=== PATIENT | female | born 1980 | race Hispanic/Latino ===

== ENCOUNTER → 2019-01-09 | Outpatient (REF) | payer OTHER | END | disposition home or self-care (01) | DRG 696 | LOC: LABSPEC 12:40 | PROVIDERS: ATTEND Nurse Practitioner Family | DX: R35.0 Frequency of micturition (principal) ==

== ENCOUNTER 2023-12-27 08:58 | Day surgery (SDC) | payer BC ==
[~2023-12-27] VITALS: Ht 152.4 cm; Wt 67.1 kg
[~2023-12-27 08:58] MED LIST: ALEVE220 M1 PO; OMEPRAZOLE DR40 MG PO
[2023-12-27] MEDS ORDERED: LACTATED RINGER'S 1,000 ML IV ONE (09:16)
[2023-12-27] MEDS ORDERED: FAMOTIDINE 10MG/ML 2ML SDV IV ONE (09:16)
[2023-12-27 10:33] VITALS: BP 129/85
[2023-12-27] MEDS ORDERED: LIDOCAINE HCL 2% 2ML SDV IV ONE (13:43)
[2023-12-27] MEDS ORDERED: PROPOFOL 200 MG/20 ML VIAL IV ONE (13:43)
== END 2023-12-27 10:56 | disposition home or self-care (01) | DRG 951 ==
LOC: ENDO 08:58
PROVIDERS: ATTEND Internal Medicine Gastroenterology
PROC: 0DJD8ZZ Inspection of Lower Intestinal Tract, Via Natural or Artificial Opening Endoscopic (ICD-10-PCS; principal; 2023-12-27)
PROC: 0DB48ZX Excision of Esophagogastric Junction, Via Natural or Artificial Opening Endoscopic, Diagnostic (ICD-10-PCS; 2023-12-27)
PROC: 0DB78ZX Excision of Stomach, Pylorus, Via Natural or Artificial Opening Endoscopic, Diagnostic (ICD-10-PCS; 2023-12-27)
PROC: 0DB68ZX Excision of Stomach, Via Natural or Artificial Opening Endoscopic, Diagnostic (ICD-10-PCS; 2023-12-27)
DX: Z12.11 Encounter for screening for malignant neoplasm of colon (principal); K57.30 Diverticulosis of large intestine without perforation or abscess without bleeding; K64.8 Other hemorrhoids; K21.9 Gastro-esophageal reflux disease without esophagitis; K29.70 Gastritis, unspecified, without bleeding; K31.7 Polyp of stomach and duodenum; K31.9 Disease of stomach and duodenum, unspecified